=== PATIENT | male | born 1995 | race African-American/Black ===

== ENCOUNTER 2019-09-21 21:57 | Emergency (ER) | payer OTHER ==
[~2019-09-21] VITALS: Ht 165.1 cm; Wt 86.4 kg
[2019-09-21] MEDS ORDERED: LIDOCAINE VISCOUS 2% SOLN 15ML UDC TOP ONE (22:30)
[2019-09-21] MEDS ORDERED: AUGMENTIN 875 MG TAB PO ONE (22:30)
[2019-09-21] MEDS ORDERED: KETOROLAC TROMETHAMINE 10 MG TAB PO ONE (22:30)
[2019-09-21] MEDS ORDERED: AUGM875T28 PO (23:00)
[2019-09-21] MEDS ORDERED: KETO10TAB PO (23:00)
[2019-09-21] MEDS ORDERED: LIDVISCBTL PO (23:00)
[2019-09-21 23:06] VITALS: BP 155/87
== END 2019-09-21 23:06 | disposition home or self-care (01) ==
LOC: M ED 21:57
DX: K08.89 Other specified disorders of teeth and supporting structures (principal); Z88.5 Allergy status to narcotic agent